=== PATIENT | female | born 1950 | race Caucasian/White ===

== ENCOUNTER → 2016-12-07 | Outpatient (CLI) | payer OTHER, BC | LOC: BHFA 11:30 | PROVIDERS: ATTEND Internal Medicine Cardiovascular Disease | DX: R93.1 Abnormal findings on diagnostic imaging of heart and coronary circulation (principal); I10 Essential (primary) hypertension ==

== ENCOUNTER → 2017-03-02 | Outpatient (CLI) | payer OTHER, BC | LOC: BHFA 10:00 | PROVIDERS: ATTEND Internal Medicine Cardiovascular Disease | DX: Z51.11 Encounter for antineoplastic chemotherapy (principal) ==

== ENCOUNTER → 2017-05-18 | Outpatient (CLI) | payer OTHER, BC | LOC: BHFA 14:00 | PROVIDERS: ATTEND Internal Medicine Cardiovascular Disease | DX: Z51.89 Encounter for other specified aftercare (principal); Z79.899 Other long term (current) drug therapy ==

== ENCOUNTER 2017-07-26 08:34 | Outpatient (CLI) | payer OTHER, BC ==
[2017-07-26 09:08] LABS: HEMATOCRIT 32.7 % (38.0-47.0)
[2017-07-26 09:15] LABS: INR 1.17 (0.83-1.16); PROTIME(PATIENT) 14.9 SEC (12.0-15.0)
[2017-07-26 09:21] LABS: APTT 29.1 SEC (23.0-38.0)
[2017-07-26] MEDS ORDERED: LIDOCAINE 1% 300 MG/30 ML SDV ONE (09:21)
[2017-07-26] MEDS ORDERED: NS 1,000 ML IV SCH (09:45)
[2017-07-26] MEDS ORDERED: FLUMAZENIL 0.5 MG/5 ML MDV IVP ONE (10:04)
[2017-07-26] MEDS ORDERED: fentaNYL 100 MCG/2 ML INJ ONE (10:04)
[2017-07-26] MEDS ORDERED: NALOXONE HCL 0.4 MG/ML INJ ONE (10:04)
[2017-07-26] MEDS ORDERED: MIDAZOLAM 2 MG/2 ML VIAL ONE (10:04)
[2017-07-26] MEDS ORDERED: ONDANSETRON 4 MG/2 ML VIAL IVP PRN (11:42)
[2017-07-26] MEDS ORDERED: oxyCODONE IR 5 MG TAB PO PRN (11:42)
[2017-07-26 13:42] VITALS: BP 95/53; O2SAT 100
[2017-08-01 14:40] LABS: ACCESSION # HR17-42741; INTERPRETATION See Comments
== END 2017-07-26 13:37 | disposition home or self-care (01) ==
LOC: FIMAGING 08:34
PROVIDERS: ATTEND Internal Medicine Hematology & Oncology
PROC: 0FB13ZX Excision of Right Lobe Liver, Percutaneous Approach, Diagnostic (ICD-10-PCS; principal; 2017-07-26 11:15)
DX: C78.7 Secondary malignant neoplasm of liver and intrahepatic bile duct (principal); C50.919 Malignant neoplasm of unspecified site of unspecified female breast
CPT/HCPCS: 47000; 76942; 88360; 88361; 99152; J2250; J3010; J2310

== ENCOUNTER → 2017-10-18 | Outpatient (CLI) | payer OTHER, BC | LOC: BHFA 13:15 | PROVIDERS: ATTEND Internal Medicine Cardiovascular Disease | DX: Z51.11 Encounter for antineoplastic chemotherapy (principal) | CPT/HCPCS: 86300-90 ==

== ENCOUNTER 2017-10-28 14:06 | Outpatient (CLI) | payer OTHER, BC ==
[2017-10-28] MEDS ORDERED: diphenhydrAMINE 25 MG CAP PO ONE (14:36)
[2017-10-28] MEDS ORDERED: ACETAMINOPHEN 325 MG TAB PO ONE (14:40)
[2017-10-28] MEDS ORDERED: diphenhydrAMINE 12.5 MG/5 ML UDCUP PO ONE (15:00)
[2017-10-28 15:31] VITALS: TEMP 98.6; O2SAT 93
[2017-10-28 17:54] VITALS: BP 118/67; PULSE 106; RESP 16
== END 2017-10-28 18:04 | disposition home or self-care (01) ==
LOC: FOBOP 14:06
PROVIDERS: ATTEND Internal Medicine Hematology & Oncology
PROC: 30233N0 Transfusion of Autologous Red Blood Cells into Peripheral Vein, Percutaneous Approach (ICD-10-PCS; principal; 2017-10-28)
DX: C50.919 Malignant neoplasm of unspecified site of unspecified female breast (principal); D64.81 Anemia due to antineoplastic chemotherapy; C79.51 Secondary malignant neoplasm of bone; E61.1 Iron deficiency; L27.1 Localized skin eruption due to drugs and medicaments taken internally
CPT/HCPCS: 36430; P9016

== ENCOUNTER → 2017-11-15 | Outpatient (CLI) | payer OTHER, BC ==
[~2017-11-15] MED LIST: GADOBUTROL 10 ML VIAL IVP ONE
== END ==
LOC: FIMAGING 10:40
PROVIDERS: ATTEND Internal Medicine Hematology & Oncology
DX: M25.562 Pain in left knee (principal); R93.0 Abnormal findings on diagnostic imaging of skull and head, not elsewhere classified; R60.0 Localized edema
CPT/HCPCS: 70553; 93971; A9585; J1642; 86300-90

== ENCOUNTER → 2017-12-19 | Outpatient (CLI) | payer OTHER, BC | LOC: FIMAGING 14:52 | PROVIDERS: ATTEND Nurse Practitioner | DX: Z12.31 Encounter for screening mammogram for malignant neoplasm of breast (principal) ==

== ENCOUNTER → 2017-12-21 | Outpatient (CLI) | payer OTHER, BC ==
[~2017-12-21] MED LIST changes: -GADOBUTROL 10 ML VIAL IVP ONE; +IOPAMIDOL (ISOVUE-300) 100 ML BTL ONE
== END ==
LOC: FIMAGING 10:08
PROVIDERS: ATTEND Nurse Practitioner
DX: J98.09 Other diseases of bronchus, not elsewhere classified (principal); J98.11 Atelectasis; R59.9 Enlarged lymph nodes, unspecified; C50.812 Malignant neoplasm of overlapping sites of left female breast
CPT/HCPCS: 71260; Q9967

== ENCOUNTER → 2017-12-27 | Outpatient (CLI) | payer OTHER, BC ==
[~2017-12-27] MED LIST changes: +GADOBUTROL 10 ML VIAL IVP ONE; -IOPAMIDOL (ISOVUE-300) 100 ML BTL ONE
== END ==
LOC: FIMAGING 14:45
PROVIDERS: ATTEND Nurse Practitioner
DX: C71.9 Malignant neoplasm of brain, unspecified (principal); C79.31 Secondary malignant neoplasm of brain; C79.51 Secondary malignant neoplasm of bone
CPT/HCPCS: 70553; A9585

== ENCOUNTER → 2018-02-01 | Outpatient (CLI) | payer OTHER, BC | LOC: BHFA 15:30 | PROVIDERS: ATTEND Internal Medicine Interventional Cardiology | DX: Z51.11 Encounter for antineoplastic chemotherapy (principal) ==